=== PATIENT | male | born 1970 | race Caucasian/White ===

== ENCOUNTER 2019-01-20 18:50 | Inpatient (IN) ==
[2019-01-20] MEDS ORDERED: NS 1,000 ML IV ONE ×2 (19:38→21:31)
[2019-01-20] MEDS ORDERED: ZOSYN 4.5 GM in NS 100 ML IV ONE (19:39)
[2019-01-20] MEDS ORDERED: VANCOMYCIN IV PER PHARMACY MISC SCH (19:45)
[2019-01-20] MEDS ORDERED: MORPHINE IV ONE (19:50)
--- NOTE | 2019-01-20 20:21 | Diag Imaging Result Doc PS360 ---
EXAM: LOWER LEG-LEFT HISTORY: EXTENSIVE CELLULITIS; ANY OSTEOMYELITIS? TECHNIQUE: Left Tibia and fibula, four views COMPARISON: 01/18/2019 FINDINGS: No fracture. No dislocation. No bone erosions. No periosteal reaction. IMPRESSION: No plain film evidence of osteomyelitis. If clinical suspicion persists then an MRI is recommended. Electronically signed by Harrison Foster 01/20/2019 8:19 PM
[2019-01-20 20:32] LABS: BASO# 0.04 X1000 (0.0-0.2); BASO% 0.1 % (0.0-0.8); EOS# 0.13 X1000 (0.0-0.7); EOS% 0.5 % (0.0-10.0); HEMATOCRIT 39.3 % (42.0-52.0); HEMOGLOBIN 13.6 g/dL (14.0-18.0); IMM GRAN# 0.13 X1000 (0.0-0.04); IMM GRAN% 0.5 % (0.0-0.5); LYMPH# 1.03 X1000 (1.2-3.4); LYMPH% 3.9 % (20.5-51.1); MCH 30.2 PG (27-31); MCHC 34.6 g/dL (33-37); MCV 87.1 FL (81-99); MONO# 1.97 X1000 (0.11-0.59); MONO% 7.4 % (1.7-9.3); MPV 9.4 FL (7.4-10.4); NEUT# 23.37 X1000 (1.4-6.5); NEUT% 87.6 % (42.2-75.2); PLT 320 X1000 (130-400); RBC 4.51 XMIL (4.7-6.1); RDW 12.5 % (11.5-14.5); WBC 26.67 X1000 (4.8-10.8)
[2019-01-20 20:33] LABS: AGAP 13; ALBUMIN 3.4 g/dL (3.5-5.0); ALKALINE PHOSPHATASE 119 U/L (32-122); BUN 11 mg/dL (8-22); CALCIUM 8.7 mg/dL (8.8-10.2); CHLORIDE 96 mmol/L (98-107); COSMO 272; CREATININE 0.8 mg/dL (0.7-1.2); ESTIMATED GFR > 60; GLUCOSE 119 mg/dL (70-104); GOT 20 U/L (10-34); GPT 22 U/L (10-44); LYMPHS 5 % (21-51); MONO 7 % (1-9); POTASSIUM 3.7 mmol/L (3.5-5.1); SEGS 88 % (42-75); SODIUM 136 mmol/L (136-145); TCO2 27 mmol/L (25-35); TOTAL PROTEIN 6.7 g/dL (6.3-8.3)
[2019-01-20 21:09] LABS: BILIRUBIN URINE NEGATIVE (NEGATIVE); BLOOD URINE 1+ (NEGATIVE); CLARITY CLEAR (CLEAR); COLOR YELLOW; GLUCOSE URINE NEGATIVE (NEGATIVE); KETONE URINE NEGATIVE (NEGATIVE); LEUKOCYTES URINE NEGATIVE (NEGATIVE); NITRITE URINE NEGATIVE (NEGATIVE); PROTEIN URINE TRACE mg/dL (NEGATIVE); UROBILINOGEN URINE NORMAL
[2019-01-20 21:17] LABS: URINE BACTERIA 2+ /HFP; URINE EPITHELIAL CELLS <10 /HPF (<10); URINE RBC <10 /HPF (<10); URINE SOURCE CLEAN CATCH; URINE WBC <10 /HPF (<10)
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
[2019-01-20] MEDS: VANCOMYCIN 1 GM/NS 1 GM/250 ML IVPB IV SCH (21:30)
[2019-01-20] MEDS ORDERED: NORCO-5 PO SCH (21:45)
[2019-01-20] MEDS ORDERED: LOVENOX ONE (21:59)
[2019-01-20] MEDS ORDERED: COLACE ONE (21:59)
[2019-01-20] MEDS: LOVENOX SUBQ SCH (22:08)
[2019-01-20] MEDS: COLACE PO SCH (22:08)
[2019-01-21] MEDS: VANCOMYCIN 1 GM/NS 1 GM/250 ML IVPB IV SCH (00:20)
[2019-01-21] MEDS: NORCO-5 PO PRN ×3 (01:19→20:01)
[2019-01-21] MEDS: ZOSYN 3.375 GM in NS 50 ML IV SCH ×4 (01:20→20:02)
[2019-01-21] MEDS: COLACE PO SCH ×2 (08:42→20:02)
[2019-01-21] MEDS: MORPHINE IV PRN ×2 (08:42→16:45)
[2019-01-21] MEDS: LOVENOX SUBQ SCH ×2 (08:42→20:01)
[2019-01-21] MEDS: MIRALAX PO SCH (08:42)
[2019-01-21 10:08] LABS: BASO# 0.05 X1000 (0.0-0.2); BASO% 0.2 % (0.0-0.8); EOS# 0.34 X1000 (0.0-0.7); EOS% 1.6 % (0.0-10.0); HEMATOCRIT 34.9 % (42.0-52.0); HEMOGLOBIN 12.1 g/dL (14.0-18.0); IMM GRAN# 0.14 X1000 (0.0-0.04); IMM GRAN% 0.6 % (0.0-0.5); LYMPH# 1.38 X1000 (1.2-3.4); LYMPH% 6.3 % (20.5-51.1); MCH 30.4 PG (27-31); MCHC 34.7 g/dL (33-37); MCV 87.7 FL (81-99); MONO# 1.76 X1000 (0.11-0.59); MONO% 8.1 % (1.7-9.3); MPV 9.2 FL (7.4-10.4); NEUT# 18.09 X1000 (1.4-6.5); NEUT% 83.2 % (42.2-75.2); PLT 310 X1000 (130-400); RBC 3.98 XMIL (4.7-6.1); RDW 12.4 % (11.5-14.5); WBC 21.76 X1000 (4.8-10.8)
[2019-01-21 10:27] LABS: AGAP 10; BUN 8 mg/dL (8-22); CALCIUM 8.2 mg/dL (8.8-10.2); CHLORIDE 100 mmol/L (98-107); COSMO 274; CREATININE 0.8 mg/dL (0.7-1.2); ESTIMATED GFR > 60; GLUCOSE 163 mg/dL (70-104); POTASSIUM 3.7 mmol/L (3.5-5.1); SODIUM 136 mmol/L (136-145); TCO2 26 mmol/L (25-35)
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
[2019-01-21] MEDS: VANCOMYCIN 1,500 MG in NS 250 ML IV SCH ×2 (11:21→20:55)
[2019-01-21] MEDS: NICODERM PATCH TD SCH (11:22)
--- NOTE | 2019-01-21 15:39 | Extremity Venous Study ---
Venous U/S Left Leg - 01/21/2019 INDICATION: left lower ext cellulitis, rule out dvt TECHNIQUE: COMPARISON: None FINDINGS: The veins of the lower extremities are fully compressible. There is normal color and pulse wave Doppler signal throughout. No mass or fluid collection. IMPRESSION: Negative exam. Electronically signed by Blu Jeffery 01/21/2019 3:36 PM
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
[2019-01-22] MEDS: ZOSYN 3.375 GM in NS 50 ML IV SCH ×4 (03:01→21:16)
[2019-01-22] MEDS: NORCO-5 PO PRN (03:02)
[2019-01-22] MEDS ORDERED: NS 50 ML ONE (06:24)
[2019-01-22 06:40] LABS: BASO# 0.05 X1000 (0.0-0.2); BASO% 0.3 % (0.0-0.8); EOS# 0.61 X1000 (0.0-0.7); EOS% 3.1 % (0.0-10.0); HEMATOCRIT 36.3 % (42.0-52.0); HEMOGLOBIN 12.4 g/dL (14.0-18.0); IMM GRAN# 0.27 X1000 (0.0-0.04); IMM GRAN% 1.4 % (0.0-0.5); LYMPH# 1.71 X1000 (1.2-3.4); LYMPH% 8.8 % (20.5-51.1); MCH 29.9 PG (27-31); MCHC 34.2 g/dL (33-37); MCV 87.5 FL (81-99); MONO# 2.08 X1000 (0.11-0.59); MONO% 10.7 % (1.7-9.3); MPV 9.2 FL (7.4-10.4); NEUT# 14.78 X1000 (1.4-6.5); NEUT% 75.7 % (42.2-75.2); PLT 345 X1000 (130-400); RBC 4.15 XMIL (4.7-6.1); RDW 12.9 % (11.5-14.5)
[2019-01-22 07:19] LABS: BANDS 2 % (0-1); LYMPHS 9 % (21-51); MONO 9 % (1-9); SEGS 80 % (42-75)
[2019-01-22 07:24] LABS: AGAP 11; BUN 6 mg/dL (8-22); CALCIUM 8.2 mg/dL (8.8-10.2); CHLORIDE 104 mmol/L (98-107); COSMO 279; CREATININE 0.7 mg/dL (0.7-1.2); ESTIMATED GFR > 60; GLUCOSE 129 mg/dL (70-104); POTASSIUM 3.7 mmol/L (3.5-5.1); SODIUM 140 mmol/L (136-145); TCO2 26 mmol/L (25-35)
[2019-01-22] MEDS: MIRALAX PO SCH (07:59)
[2019-01-22] MEDS: COLACE PO SCH ×2 (07:59→21:16)
[2019-01-22] MEDS: LOVENOX SUBQ SCH (07:59)
[2019-01-22] MEDS: NORCO-7.5 PO PRN ×3 (08:12→22:16)
[2019-01-22] MEDS: VANCOMYCIN 1,500 MG in NS 250 ML IV SCH ×2 (08:52→21:59)
[2019-01-22] MEDS: MORPHINE IV PRN ×2 (11:08→17:17)
[2019-01-22] MEDS: NICODERM PATCH TD SCH (11:16)
--- NOTE | 2019-01-22 22:12 | PROGRESS NOTE ---
DATE: 01/22/2019 SUBJECTIVE: Patient notes that his leg pain is actually improved. Denies any fevers or chills. PHYSICAL: Temperature 98, pulse 95, respiratory 20, BP 115/71.General: Patient is awake, alert, lying in bed. He is pleasant to talk with. HEENT: Normocephalic. Neck: Supple. CV: Regular rate. Chest: Clear nonlabored. Abdomen: Soft, nondistended. Extremities: Moves all extremities. Skin: His left lower extremity has much less swelling [*] ankle feels red but not nearly as deep red as it was, less warm to the touch, less tender as well. ASSESSMENT: 1. Left lower extremity cellulitis . 2. Early sepsis resolved. 3. Amphetamine dependence. 4. Nicotine dependence. 5. Leukocytosis white count dropped from 26 down to 19. PLAN: Will continue vancomycin and Zosyn, expect he will be in the hospital 2 or 3 more days, will increase his [place] 7.5, will continue pain control. Further orders as needed. cc: Sudeep Kramer MD
[2019-01-23] MEDS: MORPHINE IV PRN (00:46)
[2019-01-23] MEDS: ZOSYN 3.375 GM in NS 50 ML IV SCH ×2 (01:56→08:36)
[2019-01-23 06:13] LABS: BASO# 0.27 X1000 (0.0-0.2); BASO% 1.2 % (0.0-0.8); EOS% 3.7 % (0.0-10.0); HEMATOCRIT 37.4 % (42.0-52.0); HEMOGLOBIN 12.6 g/dL (14.0-18.0); IMM GRAN# 0.69 X1000 (0.0-0.04); IMM GRAN% 3.2 % (0.0-0.5); LYMPH# 2.32 X1000 (1.2-3.4); LYMPH% 10.7 % (20.5-51.1); MCH 29.9 PG (27-31); MCHC 33.7 g/dL (33-37); MCV 88.6 FL (81-99); MONO# 1.91 X1000 (0.11-0.59); MONO% 8.8 % (1.7-9.3); MPV 9.1 FL (7.4-10.4); NEUT# 15.62 X1000 (1.4-6.5); NEUT% 72.4 % (42.2-75.2); PLT 381 X1000 (130-400); RBC 4.22 XMIL (4.7-6.1); RDW 13.1 % (11.5-14.5); WBC 21.61 X1000 (4.8-10.8)
[2019-01-23 07:08] LABS: AGAP 9; BUN 10 mg/dL (8-22); CALCIUM 9.8 mg/dL (8.8-10.2); CHLORIDE 98 mmol/L (98-107); COSMO 271; CREATININE 0.9 mg/dL (0.7-1.2); GLUCOSE 123 mg/dL (70-104); POTASSIUM 4.1 mmol/L (3.5-5.1); SODIUM 135 mmol/L (136-145); TCO2 28 mmol/L (25-35)
[2019-01-23 07:41] LABS: EOS 4 % (1-10); LYMPHS 10 % (21-51); MONO 5 % (1-9); SEGS 81 % (42-75)
[2019-01-23 08:35] VITALS: BP 124/84
[2019-01-23] MEDS: NORCO-7.5 PO PRN (08:36)
[2019-01-23] MEDS: COLACE PO SCH (08:36)
[2019-01-23] MEDS: NICODERM PATCH TD SCH (08:36)
[2019-01-23] MEDS ORDERED: LOVENOX SUBQ SCH (09:00)
[2019-01-23] MEDS: VANCOMYCIN 1,500 MG in NS 250 ML IV SCH (09:15)
--- NOTE | 2019-01-23 13:43 | DISCHARGE SUMMARY ---
ADMISSION DATE: 01/21/2019 DISCHARGE DATE: 01/23/2019 ADMISSION DIAGNOSES: 1. Left lower extremity cellulitis. 2. Amphetamine dependence. 3. Early sepsis. 4. Nicotine dependence. DISCHARGE DIAGNOSES: 1. Left lower extremity cellulitis. 2. Amphetamine dependence. 3. Early sepsis, resolved. 4. Nicotine dependence. CONSULTATIONS: None. DIAGNOSTIC PROCEDURES AND FINDINGS: Lower extremity x-ray on the left on 01/20/2019 showed no plain film evidence of osteomyelitis. 01/21/2019 left lower extremity venous studies negative exam. HOSPITAL COURSE: Mr. Shelton is a 48-year-old male with a history of nicotine and amphetamine dependence who presented to the ER here at [facility] with multiple days of left lower extremity swelling, redness, pain and warmth. He actually came to the ER a few nights before admission and was prescribed clindamycin for cellulitis of the left leg and was discharged home. He reports that he possibly scraped his leg during work. This then proceeded to produce pus and scabs on the lateral aspect of his left lower leg. Despite clindamycin, his symptoms worsened; and he came back to our ER and was admitted for further evaluation. Initial x-ray was negative for any acute process, and his left lower extremity ultrasound was negative for DVT. His symptoms have improved on a daily basis with IV antibiotic therapy. His blood cultures and urine cultures are negative. His hemodynamics are stable. He is stable for discharge home. DISCHARGE MEDICATION: [place] 7.5 mg q 4 hours p.r.n. pain. DISCHARGE DIET: Regular. DISCHARGE ACTIVITY: Resume activity as tolerated. DISCHARGE LAB DATA: WBC 21.61, hemoglobin 12.6, hematocrit 37.4, platelet count 381,000, sodium 135, potassium 4.1, chloride 98, C02 28, anion gap 9, BUN 10, creatinine 0.9, glucose 123. PHYSICAL EXAMINATION: GENERAL: A well developed, well nourished male lying in the hospital bed in no acute distress. NEUROLOGIC: He is awake, alert and oriented, follows commands, without focal deficits. HEENT: Head is atraumatic and normocephalic. PERRL. Oral mucosa is moist. NECK: Trachea midline. No JVD. CHEST: Clear to auscultation. CARDIOVASCULAR: Regular rate and rhythm. S1 and S2 noted. There are no murmurs. GASTROINTESTINAL: Soft, nondistended and nontender. Bowel sounds positive. EXTREMITIES: Left lower extremity with mild redness, but this has improved markedly. Pulses positive bilaterally. DISPOSITION AND OTHER DISCHARGE INSTRUCTIONS: The patient is discharged home to self care. He is to continue medications as directed. He is not to operate heavy machinery, drive a car or drink alcohol while taking pain medication. He has verbalized understanding. He is to return to the ER or call 911 if there is no improvement in symptoms or if there is progression of symptoms. All questions answered. Discharge time greater than 35 minutes. Dictated by ANA MARIA Cisneros for Sudeep Kramer MD cc: ANA MARIA Cisneros MD
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
== END 2019-01-23 11:19 | disposition home or self-care (01) | DRG 872 ==
LOC: P.ED 18:50 → P.MEDSURG 01-21 00:13 → SUATTDRO 01-21 00:13
PROVIDERS: ATTEND Family Medicine
CPT/HCPCS: 73590; 80048; 80053; 80202; 81001; 83605; 83735; 85025; 85651; 87040; 87088; 93971; A9270; J1650; J2270; J2543; J3370; J7030; J7050